=== PATIENT | male | born 2000 | race Two or more races ===

== ENCOUNTER 2022-08-12 21:17 | Inpatient (IN) | payer MEDICAID, OTHER ==
[~2022-08-12] VITALS: Ht 188 cm; Wt 104.5 kg
[2022-08-12] MEDS ORDERED: diphenhdrAMINE HCL 25 MG CAP PO ONE (21:30)
[2022-08-12] MEDS ORDERED: DexAMETHasone SOD PHOS 10MG/1ML VIAL INJ IM ONE (21:30)
[2022-08-12] MEDS ORDERED: FAMOTIDINE (10MG/ML) 2ML VL IV ONE ×2 (21:31→21:45)
[2022-08-12] MEDS ORDERED: diphenhdrAMINE HCL 50 MG/1 ML VL ONE (21:32)
[2022-08-12] MEDS ORDERED: EPINEPHrine HCL 1 MG/1 ML AMP ONE (21:33)
[2022-08-12] MEDS ORDERED: diphenhdrAMINE HCL 50 MG/1 ML VL IV ONE ×2 (21:45)
[2022-08-12] MEDS ORDERED: EPINEPHrine HCL 1 MG/1 ML AMP IM ONE ×2 (21:45→22:00)
[2022-08-12] MEDS ORDERED: DexAMETHasone SOD PHOS 10MG/1ML VIAL INJ IV ONE (21:45)
[2022-08-12] MEDS ORDERED: HYDROcodone-ACET 5/325MG TAB PO PRN (22:45)
[2022-08-12] MEDS ORDERED: DOCUSATE SOD 100 MG CAP PO PRN (22:45)
[2022-08-12] MEDS ORDERED: ACETAMINOPHEN 325 MG TAB PO PRN (22:45)
[2022-08-12] MEDS ORDERED: diphenhdrAMINE HCL 50 MG/1 ML VL IV PRN (22:45)
[2022-08-12] MEDS ORDERED: ONDANSETRON HCL 4 MG/2 ML VIAL IV PRN (22:45)
[2022-08-12] MEDS ORDERED: MORPHINE SULFATE INJ 2 MG/ml SYRG IV PRN (23:15)
[2022-08-12] MEDS ORDERED: NITROGLYCERIN 0.4 MG SL TAB SL PRN (23:15)
[2022-08-13] MEDS: DexAMETHasone SOD PHOS 4 MG/1ML SDV INJ IV SCH ×3 (00:26→13:19)
[2022-08-13 01:36] LABS: Basophils # (auto) 0.1 10 ^3/uL (0-0.2); Basophils % (auto) 0.5 % (0.0-2.0); Eosinophils # (auto) 0 10 ^3/uL (0-0.8); Eosinophils % (auto) 0.1 % (0.0-7.0); Hematocrit 45.8 % (41.0-53.0); Lymphocytes # (auto) 1.1 10 ^3/uL (0.4-5.4); Lymphocytes % (auto) 7.3 % (10.0-50.0); Mean Corpuscular Volume 88.7 fL (80.0-100.0); Monocytes # (auto) 0.8 10 ^3/uL (0-1.3); Monocytes % (auto) 5.6 % (0.0-12.0); Neutrophils # (auto) 12.7 10 ^3/uL (1.6-8.6); Neutrophils % (auto) 86.5 % (37.0-80.0); Nucleated Red Blood Cells % 0.2 %; Red Blood Cells 5.17 10^6/uL (4.5-5.90); Red Cell Distribution Width 13.2 % (11.8-14.3); White Blood Cell 14.7 10^3/uL (4.4-10.8)
[2022-08-13 01:53] LABS: Albumin 3.6 g/dL (3.4-5.0); BUN/Creatinine Ratio 17.7; Calcium 8.9 mg/dL (8.5-10.1); Potassium 4.1 mmol/L (3.5-5.1)
[2022-08-13 01:56] LABS: Bilirubin, Total 0.2 mg/dL (0.2-1.0); Total Protein 6.7 g/dL (6.4-8.2)
[2022-08-13] MEDS ORDERED: DexAMETHasone SOD PHOS 4 MG/1ML SDV INJ IV SCH (06:00)
[2022-08-13] MEDS: SODIUM CHLOR 0.9% PF (SALINE LOCK) 10ML VIAL/SYR IV SCH ×2 (06:14→14:00)
[2022-08-13] MEDS ORDERED: FAMOTIDINE (10MG/ML) 2ML VL IV SCH (10:00)
[2022-08-13] MEDS ORDERED: METH4PAK PO (10:24)
[2022-08-13] MEDS ORDERED: EPIN0.1I11 IJ (10:24)
[2022-08-13 13:00] VITALS: BP 133/85
== END 2022-08-13 15:00 | disposition home or self-care (01) | DRG 811 ==
LOC: ER 21:17 → TELE 23:15 → TELE-CENTR 08-13 08:40
PROVIDERS: ADMIT Nurse Practitioner Family; ATTEND Internal Medicine Geriatric Medicine
DX: T78.02XA Anaphylactic reaction due to shellfish (crustaceans), initial encounter (principal); I95.9 Hypotension, unspecified; F41.1 Generalized anxiety disorder; L53.9 Erythematous condition, unspecified; Z20.822 Contact with and (suspected) exposure to COVID-19; I10 Essential (primary) hypertension; Y92.89 Other specified places as the place of occurrence of the external cause
CPT/HCPCS: 36415; 80053; 84484; 85025; 87426; 96372; 96374; 96375; 99291; G0378; J0171; J1100; J3490